=== PATIENT | female | born 1965 | race Two or more races ===

== ENCOUNTER 2023-12-20 08:33 | Outpatient (CLI) | payer OTHER ==
[2023-12-20 09:52] LABS: HEMOGLOBIN 13.9 g/dL (12.0-15.00); MEAN CELL VOLUME 82.8 fL (80.00-100.00); MEAN CORPUSCULAR HEMOGLOBIN 28.7 pg (27.00-32.0); MEAN CORPUSCULAR HGB CONC 34.7 g/dl (32.0-36.0); PLATELET COUNT 343 K/uL (150-450); RED BLOOD COUNT 4.84 M/uL (4.00-6.00)
[2023-12-20 10:38] LABS: ALBUMIN 4.1 gm/dL (3.4-5.0); BILIRUBIN TOTAL 0.42 mg/dL (0.3-1.2); CALCIUM 9.3 mg/dL (8.5-10.1); CHOL HDL RATIO 6.2 (0-5.0); CREATININE SERUM 1.25 mg/dL (0.55-1.02); FREE TRIODOTIRONINE 3.61 pg/ml (2.18-3.98); GFR 44.33; GLOBULINA 3.3 G/DL (2.4-3.5); POTASSIUM 4.69 mEq/L (3.5-5.1); T4 FREE 1.09 NG/ML (0.76-1.46); TOTAL PROTEIN 7.4 gm/dL (6.4-8.2); TSH 1.7 uIU/mL (0.358-3.74)
== END 2023-12-20 08:42 | disposition home or self-care (01) ==
LOC: LAB 08:33
PROVIDERS: ATTEND Specialist
DX: E55.9 Vitamin D deficiency, unspecified (principal); I10 Essential (primary) hypertension